=== PATIENT | male | born 1970 | race Caucasian/White ===

== ENCOUNTER 2025-01-03 07:16 | Day surgery (SDC) | payer OTHER ==
[~2025-01-03] VITALS: Ht 185.4 cm; Wt 97.3 kg
--- NOTE | 2025-01-03 08:30 | NUR ---
01/03/25 1310 ANDRESSA CABRAL PT PRESENTED W EXTREME DENTAL CARIES AND ADVANCED DECAY OF LOWER TEETH W UPPER DENTURE. PT STATES HE HAS SEEN GEN DENTIST AND BEING REFERED TO [facility] FOR TOTAL TEETH EXTRACTION. PT HAS NO FEVER OR SIGNS OF SEPSIS. END NOTE RDS
[2025-01-03 09:51] VITALS: BP 120/79
== END 2025-01-03 09:30 | disposition home or self-care (01) ==
LOC: ORSCSDS 07:16
PROVIDERS: Surgery
PROC: 0DJD8ZZ Inspection of Lower Intestinal Tract, Via Natural or Artificial Opening Endoscopic (ICD-10-PCS; principal; 2025-01-03 08:45)
DX: Z12.11 Encounter for screening for malignant neoplasm of colon (principal); F17.210 Nicotine dependence, cigarettes, uncomplicated; K64.1 Second degree hemorrhoids
CPT/HCPCS: J2704; J7120